=== PATIENT | male | born 1940 | race Caucasian/White ===

== ENCOUNTER 2018-12-13 09:43 | Day surgery (SDC) | payer OTHER ==
[2018-12-13] MEDS ORDERED: LACTATED RINGER'S 1,000 ML IV (11:00)
[2018-12-13] MEDS ORDERED: ROCURONIUM 50 MG INJ (11:27)
[2018-12-13] MEDS ORDERED: PROPOFOL 20 ML (11:27)
[2018-12-13] MEDS ORDERED: FENTAnyl 50 MCG/ML VIAL (11:27)
[2018-12-13] MEDS ORDERED: ROPIVACAINE 0.2% 20 ML VIAL (11:27)
[2018-12-13] MEDS ORDERED: CEFAZOLIN 1 GM INJ (11:27)
[2018-12-13] MEDS ORDERED: METOPROLOL 5 MG INJ (11:27)
[2018-12-13] MEDS ORDERED: SEVOFLURANE 15 MIN (11:30)
[2018-12-13] MEDS ORDERED: PHENYLephrine (100 MCG/ML) 5ML SYG (11:30)
[2018-12-13] MEDS ORDERED: EPHEDrine 25 MG/5 ML SYG (11:30)
[2018-12-13] MEDS ORDERED: HETASTARCH 6% NACL 500 ML (12:01)
[2018-12-13] MEDS: LIDOCAINE 1% (MPF) 30 ML INJ (12:09)
[2018-12-13] MEDS: BUPIVACAINE 0.25%/EPI (SDV) 30 ML INJ (12:09)
[2018-12-13] MEDS ORDERED: ONDANSETRON 4 MG INJ (12:58)
[2018-12-13] MEDS ORDERED: METOCLOPRAMIDE 10 MG INJ (12:58)
[2018-12-13] MEDS ORDERED: DEXAMETHASONE 4 MG/ML 5 ML INJ (12:58)
[2018-12-13] MEDS ORDERED: SUGAMMADEX SODIUM 200 MG/2 ML VIAL IV (13:17)
[2018-12-13] MEDS ORDERED: IBUPROFEN 600 MG TAB PO (14:00)
[2018-12-13] MEDS ORDERED: ACETAMINOPHEN 325 MG TAB PO (14:00)
[2018-12-13] MEDS ORDERED: ONDANSETRON 4 MG INJ IV (14:00)
[2018-12-13] MEDS ORDERED: OXYCODONE/ACETAMINOPHEN (5/325) TAB PO (14:00)
[2018-12-13] MEDS ORDERED: IPRATROPIUM (NEB) 0.5 MG/2.5 ML AMP HHN (14:30)
[2018-12-13] MEDS: ALBUTEROL 0.083% (NEB) 2.5 MG/3 ML AMP HHN (14:31)
== END 2018-12-13 15:45 | disposition home or self-care (01) ==
LOC: SDS 09:43
DX: K40.20 Bilateral inguinal hernia, without obstruction or gangrene, not specified as recurrent (principal)
CPT/HCPCS: 49650; 88302; 94664